=== PATIENT | male | born 1960 | race African-American/Black ===

== ENCOUNTER 2017-05-04 16:49 | Emergency (ER) | payer MEDICAID ==
[~2017-05-04] VITALS: Ht 177.8 cm; Wt 80.0 kg
[2017-05-04] MEDS ORDERED: SODIUM CHLORIDE 0.9% 1,000 ML IV ONE (17:08)
[2017-05-04] MEDS ORDERED: CLONIDINE 0.2MG TABLET PO ONE (17:15)
[2017-05-04] MEDS ORDERED: LORAZEPAM 2MG/ML CPJ IV ONE (17:15)
[2017-05-04 17:43] LABS: BASOPHILS % 0.5 % (0.0-2.0); EOSINOPHILS % 2.9 % (0.0-5.0); HEMATOCRIT. 41.5 % (42.0-52.0); HEMOGLOBIN. 13.6 g/dL (14.0-18.0); LYMPHOCYTES % 13.8 % (20.0-50.0); MEAN CORPUSCULAR HEMOGLOBIN 26.2 pg (28.0-32.0); MEAN CORPUSCULAR VOLUME 79.9 fL (80.0-94.0); MONOCYTES % 7.6 % (2.0-8.0); NEUTROPHILS % 75.2 % (40.0-76.0); PLATELET 156 x1000/uL (130-400); RED BLOOD CELL COUNT 5.19 mill/uL (4.7-6.1); RED CELL DISTRIBUTION WIDTH 14.6 % (11.6-14.6)
[2017-05-04 17:48] LABS: CHLORIDE 108 mEq/L (98-107)
[2017-05-04 17:50] LABS: INR 1.1
[2017-05-04 17:51] LABS: CARBON DIOXIDE 28 mEq/L (21-32)
[2017-05-04 17:52] LABS: AMMONIA 24 uMol/L (<32); ETHANOL BLOOD < 10 mg/dL
[2017-05-04 17:56] LABS: CREATINE KINASE 152 IU/L (39-308)
[2017-05-04 17:58] LABS: TROPONIN I < 0.02 ng/mL (0.00-0.04)
[2017-05-04 18:42] LABS: CLARITY URINE CLEAR (CLEAR); COLOR URINE DARK YELLOW (YELLOW); GLUCOSE URINE NEGATIVE (NEGATIVE); KETONES URINE TRACE (NEGATIVE); LEUKOCYTE ESTERASE URINE NEGATIVE (NEGATIVE); NITRITE URINE NEGATIVE (NEGATIVE); OCCULT BLOOD URINE NEGATIVE (NEGATIVE); PROTEIN URINE 2+ (NEGATIVE)
[2017-05-04 19:07] LABS: *AMPHETAMINES SCREEN URINE NEGATIVE (NEGATIVE); *BARBITURATES SCREEN URINE NEGATIVE (NEGATIVE); *BENZODIAZEPINES SCREEN URINE NEGATIVE (NEGATIVE); *COCAINE SCREEN URINE PRESUMTIVE POSITIVE (NEGATIVE); CANNABINOID URINE SCREEN PRESUMTIVE POSITIVE (NEGATIVE); METHADONE URINE SCREEN NEGATIVE (NEGATIVE); OPIATES URINE SCREEN NEGATIVE (NEGATIVE); PHENCYCLIDINE URINE SCREEN PRESUMTIVE POSITIVE (NEGATIVE)
[2017-05-05 06:00] VITALS: BP 120/78
== END 2017-05-05 06:25 | disposition home or self-care (01) ==
LOC: ER 17:00
DX: T40.5X1A Poisoning by cocaine, accidental (unintentional), initial encounter (principal); G92 Toxic encephalopathy; F14.188 Cocaine abuse with other cocaine-induced disorder; F16.10 Hallucinogen abuse, uncomplicated; Y92.89 Other specified places as the place of occurrence of the external cause; I10 Essential (primary) hypertension; F17.210 Nicotine dependence, cigarettes, uncomplicated
CPT/HCPCS: 36415; 70450; 71010; 80053; 80305; 81001; 82140; 82550; 84443; 84484; 85025; 85610; 93005; 96361; 96374; 99285; G0482; J2060; J7030; Z7610

== ENCOUNTER 2023-03-29 02:37 | Emergency (ER) | payer MEDICAID ==
[~2023-03-29] VITALS: Ht 182.9 cm; Wt 99.7 kg
[2023-03-29 03:02] VITALS: BP 134/96; PULSE 94; RESP 18; TEMP 98; O2SAT 97
[2023-03-29] MEDS ORDERED: SILVER SULFADIAZINE 1% CREAM 50GM TOP ONE (06:45)
[2023-03-29] MEDS ORDERED: SILV50CR31 TP (07:12)
== END 2023-03-29 07:46 | disposition home or self-care (01) ==
LOC: ER 03:09
DX: T22.20XA Burn of second degree of shoulder and upper limb, except wrist and hand, unspecified site, initial encounter (principal); T79.9XXA Unspecified early complication of trauma, initial encounter; F17.200 Nicotine dependence, unspecified, uncomplicated; Z00.00 Encounter for general adult medical examination without abnormal findings; Z59.00 Homelessness unspecified; X08.8XXA Exposure to other specified smoke, fire and flames, initial encounter; Y93.89 Activity, other specified; Y92.89 Other specified places as the place of occurrence of the external cause; Y99.8 Other external cause status
CPT/HCPCS: 16000; 99283